=== PATIENT | male | born 1960 | race Caucasian/White ===

== ENCOUNTER 2017-04-03 15:11 | Emergency (ER) | payer BC, OTHER ==
[~2017-04-03] VITALS: Ht 170.2 cm; Wt 77.1 kg
[~2017-04-03 15:11] MED LIST: METO25TA4 PO
[2017-04-03 15:25] VITALS: BP 131/84
[2017-04-03] MEDS ORDERED: ACYCLOVIR 200 MG CAPSULE. PO STA (16:02)
[2017-04-03] MEDS ORDERED: ACYC800T PO (16:09)
[2017-04-03] MEDS ORDERED: HYDR-971 PO (16:09)
[2017-04-03] MEDS ORDERED: PRED50TA PO (16:09)
--- NOTE | 2017-04-03 16:10 | PHYS DOC ---
Past Medical History Past Medical History: A-Fib Additional Past Medical Histor: dizziness Past Surgical History: Other Additional Past Surgical Histo: SHAINA R FEMUR Additional Information: PT REPORTS HE CHEWS TOBACCO. Alcohol Use: None Drug Use: None Adult General Chief Complaint Chief Complaint: SKIN RASH/ABSCESS HPI HPI Patient is a 56 year old male with history of A. fib who presents today with a blister like rash on the right lateral thigh that began 3 days ago. Patient denies any fever. Review of Systems Review of Systems Constitutional: Denies fever or chills [] Eyes: Denies change in visual acuity, redness, or eye pain [] HENT: Denies nasal congestion or sore throat [] Musculoskeletal: Denies back pain or joint pain [] Integument: Blisterlike rash on the right thigh Neurologic: Denies headache, focal weakness or sensory changes [] Endocrine: Denies polyuria or polydipsia [] Allergies Allergies Allergies Coded Allergies Type Severity Reaction Last Updated Verified strawberry Allergy Intermediate hives, anaphylaxis 01/10/14 Yes Physical Exam Physical Exam Constitutional: Well developed, well nourished, no acute distress, non-toxic appearance. [] HENT: Normocephalic, atraumatic, bilateral external ears normal, oropharynx moist, no oral exudates, nose normal. [] Eyes: PERRLA, EOMI, conjunctiva normal, no discharge. [] Neck: Normal range of motion, no tenderness, supple, no stridor. [] Cardiovascular:Heart rate regular rhythm, no murmur [] Lungs & Thorax: Bilateral breath sounds clear to auscultation [] Abdomen: Bowel sounds normal, soft, no tenderness, no masses, no pulsatile masses. [] Skin: Patient has moderate amount of grouped fluid filled blisters consistent with shingles on the right lateral thigh following the SI dermatome. Back: No tenderness, no CVA tenderness. [] Extremities: No tenderness, no cyanosis, no clubbing, ROM intact, no edema. [] Neurologic: Alert and oriented X 3, normal motor function, normal sensory function, no focal deficits noted. [] Psychologic: Affect normal, judgement normal, mood normal. [] Current Patient Data Vital Signs Vital Signs Date Time Temp Pulse Resp B/P (MAP) Pulse Ox O2 Delivery O2 Flow Rate FiO2 04/03/17 15:25 98.2 88 18 98 Room Air 98.2 EKG EKG [] Radiology/Procedures Radiology/Procedures [] Course & Med Decision Making Course & Med Decision Making Pertinent Labs and Imaging studies reviewed. (See chart for details) Patient has moderate amount of grouped fluid filled blisters consistent with shingles on the right lateral thigh following the SI dermatome. He was discharged with acyclovir, Benadryl, prednisone, and hydrocodone for pain. Follow-up with the PCP in one week. Abby Disclaimer Dragon Disclaimer This electronic medical record was generated, in whole or in part, using a voice recognition dictation system. Departure Departure Impression: Primary Impression: Shingles Disposition: HOME, SELF-CARE Condition: STABLE Referrals: NO PCP (PCP) follow up with your doctor in one week Patient Instructions: Shingles, [id number] Additional Instructions: You were seen for shingles rash. Take the prescribed medicines as ordered. Follow-up with your own doctor in the next 1 week. Scripts Hydrocodone/Apap 5-325 (NORCO 5-325 TABLET) 1 Each Tablet 1-2 TAB PO Q4-6HRS, #30 TAB Prov: LAMONT HINOJOSA APRN 04/03/17 Prednisone (PREDNISONE) 50 Mg Tablet 1 TAB PO DAILY, #5 TAB Prov: LAMONT HINOJOSA APRN 04/03/17 Acyclovir (ACYCLOVIR) 800 Mg Tablet 1 TAB PO 5XDAY, #50 TAB Prov: LAMONT HINOJOSA APRN 04/03/17 Problem Qualifiers Primary Impression: Shingles Herpes zoster complications: without complications Qualified Codes: B02.9 - Zoster without complications LAMONT HINOJOSA APRN Apr 03, 2017 16:10
[2017-04-03] MEDS ORDERED: MORPHINE SULFATE 10 MG/ML VIAL. IM ONE (16:15)
[2017-04-03] MEDS ORDERED: DEXAMETHASONE SOD PHOS 20 MG/5 ML VIAL. IM ONE (16:15)
== END 2017-04-03 16:26 | disposition home or self-care (01) ==
LOC: ER 15:11
DX: B02.9 Zoster without complications (principal); I48.91 Unspecified atrial fibrillation; F17.220 Nicotine dependence, chewing tobacco, uncomplicated; Z91.018 Allergy to other foods
CPT/HCPCS: 96372; 99284; J1100; J2270